=== PATIENT | female | born 1980 | race Caucasian/White ===

== ENCOUNTER 2018-09-01 15:52 | Emergency (ER) | payer OTHER, MEDICAID ==
[2018-09-01] MEDS: LIDOCAINE 1% (MDV) 20 ML INJ SC (16:59)
== END 2018-09-01 18:37 | disposition home or self-care (01) ==
LOC: FTE 15:52
DX: L02.416 Cutaneous abscess of left lower limb (principal)
CPT/HCPCS: 10060; 99282-25

== ENCOUNTER 2018-09-03 10:10 | Emergency (ER) | payer OTHER | END 2018-09-03 11:26 | disposition home or self-care (01) | LOC: FTE 10:10 | DX: Z48.01 Encounter for change or removal of surgical wound dressing (principal) | CPT/HCPCS: 99281; Z7502 ==